=== PATIENT | female | born 1990 | race Caucasian/White ===

== ENCOUNTER 2024-11-20 13:01 | Outpatient (RCR) | payer OTHER, SELFPAY | END 2024-12-13 09:25 | disposition home or self-care (01) | LOC: HO.PT 13:01 | PROVIDERS: PCP Family Medicine; Visit Provider Dentist Orthodontics and Dentofacial Orthopedics | DX: M26.609 Unspecified temporomandibular joint disorder, unspecified side (principal) | CPT/HCPCS: 97110; 97140; 97161 ==